=== PATIENT | female | born 1995 | race Caucasian/White ===

== ENCOUNTER 2017-07-10 10:34 | Emergency (ER) | END 2017-07-10 14:01 | disposition home or self-care (01) ==

== ENCOUNTER 2017-12-13 09:20 | Outpatient (CLI) | END 2017-12-13 11:54 | disposition home or self-care (01) ==

== ENCOUNTER 2017-12-27 08:25 | Inpatient (IN) | END 2017-12-29 19:07 | disposition home or self-care (01) | DRG 775 ==